=== PATIENT | male | born 2000 | race Hispanic/Latino ===

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

== ENCOUNTER 2025-01-05 23:10 | Emergency (ER) | payer OTHER, SELFPAY ==
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
[2025-01-05] MEDS ORDERED: IBUPROFEN 400 MG TAB ONE (23:40)
[2025-01-05] MEDS ORDERED: HYDROCODONE/APAP 5/325 MG TAB ONE (23:41)
[2025-01-05] MEDS ORDERED: ACETAMINOPHEN 325 MG TABLET ONE (23:41)
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
[2025-01-06 02:09] VITALS: BP 126/77; TEMP 98; O2SAT 99
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
== END 2025-01-06 01:26 | disposition home or self-care (01) ==
LOC: ER 23:10
DX: S97.81XA Crushing injury of right foot, initial encounter (principal)
CPT/HCPCS: 99284